=== PATIENT | female | born 2000 | race African-American/Black ===

== ENCOUNTER 2024-10-20 06:20 | Emergency (ER) | payer SELFPAY ==
[~2024-10-20] VITALS: Ht 167.6 cm; Wt 61.0 kg
[2024-10-20 06:37] VITALS: O2SAT 100
[2024-10-20 07:38] LABS: BASOPHILS % 0.4 % (0.0-2.0); EOSINOPHILS % 0.2 % (0.0-5.0); HEMATOCRIT. 30.9 % (36.0-48.0); HEMOGLOBIN. 10.1 g/dL (12.0-16.0); LYMPHOCYTES % 27.1 % (20.0-50.0); MEAN CORPUSCULAR HEMOGLOBIN 27.7 pg (28.0-32.0); MEAN CORPUSCULAR HGB CONC 32.7 g/dL (31.0-37.0); MEAN CORPUSCULAR VOLUME 84.6 fL (81.0-99.0); MEAN PLATELET VOLUME 8.5 fl (7.4-10.4); MONOCYTES % 9.8 % (2.0-8.0); NEUTROPHILS % 62.5 % (40.0-76.0); PLATELET 238 x1000/uL (130-400); RED BLOOD CELL COUNT 3.65 mill/uL (4.2-5.4); RED CELL DISTRIBUTION WIDTH 14.9 % (11.6-14.6); WHITE BLOOD COUNT 5.6 x1000/uL (4.5-11.0)
[2024-10-20 07:48] LABS: CHLORIDE 107 mEq/L (98-107); POTASSIUM 3.8 mEq/L (3.5-5.1); SODIUM 140 mEq/L (136-145)
[2024-10-20 07:49] LABS: CALCIUM 9.4 mg/dL (8.7-10.4); CARBON DIOXIDE 26 mEq/L (21-32)
[2024-10-20 07:54] LABS: CREATININE 0.4 mg/dL (0.6-1.0); GLUCOSE 88 mg/dL (70-105); UREA NITROGEN BLOOD 8 mg/dL (9-23)
[2024-10-20 07:59] LABS: B-HCG QUANTITATIVE > 1000 mIU/mL (<6)
[2024-10-20] MEDS ORDERED: PREN-183 MT (08:36)
[2024-10-20 09:05] VITALS: BP 99/67; PULSE 62; RESP 16; TEMP 36.6; O2SAT 100
== END 2024-10-20 09:09 | disposition home or self-care (01) ==
LOC: ER 06:20
DX: O26.892 Other specified pregnancy related conditions, second trimester (principal); Z3A.25 25 weeks gestation of pregnancy; O36.8120 Decreased fetal movements, second trimester, not applicable or unspecified; Z88.0 Allergy status to penicillin; W19.XXXA Unspecified fall, initial encounter; Y93.89 Activity, other specified; Y92.89 Other specified places as the place of occurrence of the external cause; Y99.8 Other external cause status
CPT/HCPCS: 36415; 76805; 80048; 81025; 84702; 85025; 99284

== ENCOUNTER 2024-10-22 12:21 | Emergency (ER) | payer SELFPAY ==
[~2024-10-22] VITALS: Ht 162.6 cm; Wt 54.4 kg
[~2024-10-22 12:21] MED LIST: PREN-183 MT
[2024-10-22 12:25] VITALS: BP 110/65; TEMP 36.7; O2SAT 100
[2024-10-22 12:43] VITALS: PULSE 100; RESP 18; O2SAT 99
== END 2024-10-22 14:26 | disposition home or self-care (01) ==
LOC: ER 12:21
DX: Z13.89 Encounter for screening for other disorder (principal); Z88.0 Allergy status to penicillin
CPT/HCPCS: 99281